=== PATIENT | male | born 1965 ===

== ENCOUNTER 2016-08-01 13:33 | Emergency (ER) | payer OTHER ==
--- NOTE | 2016-08-01 14:12 | ED NURSING NOTES ---
Clinical Report - Nurses [facility] [address] [place] [address] 08/01/2016 13:32 Patient: ROGER ROBISON V TRIAGE Triage time 1348 PM. Chief Complaint: INJURY TO RIGHT FOOT. Alert. No acute distress. CARLOS ALBERTO COMA SCORE: Carlos Alberto Coma Scale: 15- eyes open spontaneously (4); best verbal response- oriented x 4 (5); best motor response- obeys commands (6). --13:56 Juan David Kim R.N. 13:48 08/01/16. BP: 167/86. HR: 75. RR: 16. O2 saturation: 100%. Temp: 98.3 F (oral). Pain level now: 10/11. --13:56 Juan David Kim R.N. Weight: 87 kg stated. Height/Length: 69 inches Per Patient. BMI: 28.3. --13:56 Juan David Kim R.N. Medications MetFORMIN HCl Oral. --13:53 Juan David Kim R.N. Lisinopril Oral. --13:53 Juan David Kim R.N. Allergies No Known Drug Allergy. --13:53 Juan David Kim R.N. History Arrived by private vehicle. Historian: patient. Unaccompanied. This occurred (about 2 weeks ago). ( Patient presents to the ED with symptoms of a wound to his between his left 4th and 5th toe. 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 States that he tries to change his socks every 6 to 14 hours. Patient states that he has a history of diabetes mellitus type II, and is out of his medications. Patient states that he was hospitalized two years ago for MRSA.). He has had trouble walking. Treatment PHARMACY CASHIER: Performed wound care and applied bandage. Took ibuprofen. PAST MEDICAL HX: Diabetes mellitus. Hypertension. Tetanus status: up-to-date. SOCIAL HX: Smoker- current status unknown (chewing tobacco). Alcohol use. Patient is a recovering alcoholic. (5 years this October sobreity). History of drug use: cocaine, methamphetamines. Is a recovering addict. (no). FALL RISK ASSESSMENT: Fall risk assessment completed. No fall risk identified. NUTRITIONAL RISK ASSESSMENT: The nutritional risk assessment revealed no deficiencies. FUNCTIONAL ASSESSMENT: Functional assessment: no impairments noted. LEARNING NEEDS ASSESSMENT: The learning needs assessment revealed no barriers. SKIN INTEGRITY ASSESSMENT: Skin integrity risk assessment completed. No skin integrity risk identified. --13:56 Juan David Kim R.N. PROBLEMS: Hypertension. Diabetes Mellitus. --13:54 Juan David Kim R.N. MRSA Infection. --13:54 Juan David Kim R.N. ADDITIONAL SURGERIES: no known surgeries. Interventions ID band on patient. --13:56 Juan David Kim R.N. PHYSICAL ASSESSMENT Ambulatory to room. GENERAL / NEURO / PSYCH: Oriented X 4. Alert. Appears in no acute distress. EXTREMITIES: Capillary refill is less than 2 seconds in the extremities. Extremity pulses are within normal limits. Extremities exhibit normal ROM. Pain with weight bearing. Neuro-vascular status intact to the extremity. Right foot: of the fourth and fifth toe. Limited weight bearing secondary to pain. SKIN: Skin intact. Skin is warm and dry. --13:57 Juan David Kim R.N. NURSING PROGRESS NOTES Call light placed in reach. Side rails up x 1. Bed placed in lowest position. Brakes of bed on. --13:57 Juan David Kim R.N. Point of care testing: performed by nurse. Glucose: 167. Result shown to the DISTRIBUTION TRANSFORMER ASSEMBLER. --14:14 Juan David Kim R.N. DISPOSITION / DISCHARGE Condition at departure: improved. The goals identified in the patient's plan of care were met. No learning barriers present. Discharge instructions provided and reviewed with the patient. Reviewed wound care, skin care and foot care instructions. Patient verbalized understanding. Written instructions provided in Telugu. The patient was discharged home and unaccompanied at time of discharge. He left the Emergency Department ambulatory and via private vehicle. Patient driving. FALL RISK ASSESSMENT: Fall risk assessment completed. No fall risk identified. --14:22 Juan David Kim R.N. Departure time: 1422 PM. --14:22 Juan David Kim R.N. Locked/Released at 08/01/2016 14:22 by Juan David Kim R.N.
--- NOTE | 2016-08-01 14:12 | ED NURSING NOTES ---
Clinical Report - Nurses [facility] [address] [place] [address] 08/01/2016 13:32 Patient: ROGER ROBISON V TRIAGE Triage time 1348 PM. Chief Complaint: INJURY TO RIGHT FOOT. Alert. No acute distress. CARLOS ALBERTO COMA SCORE: Carlos Alberto Coma Scale: 15- eyes open spontaneously (4); best verbal response- oriented x 4 (5); best motor response- obeys commands (6). --13:56 Juan David Kim R.N. 13:48 08/01/16. BP: 167/86. HR: 75. RR: 16. O2 saturation: 100%. Temp: 98.3 F (oral). Pain level now: 10/11. --13:56 Juan David Kim R.N. Weight: 87 kg stated. Height/Length: 69 inches Per Patient. BMI: 28.3. --13:56 Juan David Kim R.N. Medications MetFORMIN HCl Oral. --13:53 Juan David Kim R.N. Lisinopril Oral. --13:53 Juan David Kim R.N. Allergies No Known Drug Allergy. --13:53 Juan David Kim R.N. History Arrived by private vehicle. Historian: patient. Unaccompanied. This occurred (about 2 weeks ago). ( Patient presents to the ED with symptoms of a wound to his between his left 4th and 5th toe. 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 States that he tries to change his socks every 6 to 14 hours. Patient states that he has a history of diabetes mellitus type II, and is out of his medications. Patient states that he was hospitalized two years ago for MRSA.). He has had trouble walking. Treatment CARDIOGRAPHER: Performed wound care and applied bandage. Took ibuprofen. PAST MEDICAL HX: Diabetes mellitus. Hypertension. Tetanus status: up-to-date. SOCIAL HX: Smoker- current status unknown (chewing tobacco). Alcohol use. Patient is a recovering alcoholic. (5 years this October sobreity). History of drug use: cocaine, methamphetamines. Is a recovering addict. (no). FALL RISK ASSESSMENT: Fall risk assessment completed. No fall risk identified. NUTRITIONAL RISK ASSESSMENT: The nutritional risk assessment revealed no deficiencies. FUNCTIONAL ASSESSMENT: Functional assessment: no impairments noted. LEARNING NEEDS ASSESSMENT: The learning needs assessment revealed no barriers. SKIN INTEGRITY ASSESSMENT: Skin integrity risk assessment completed. No skin integrity risk identified. --13:56 Juan David Kim R.N. PROBLEMS: Hypertension. Diabetes Mellitus. --13:54 Juan David Kim R.N. MRSA Infection. --13:54 Juan David Kim R.N. ADDITIONAL SURGERIES: no known surgeries. Interventions ID band on patient. --13:56 Juan David Kim R.N. PHYSICAL ASSESSMENT Ambulatory to room. GENERAL / NEURO / PSYCH: Oriented X 4. Alert. Appears in no acute distress. EXTREMITIES: Capillary refill is less than 2 seconds in the extremities. Extremity pulses are within normal limits. Extremities exhibit normal ROM. Pain with weight bearing. Neuro-vascular status intact to the extremity. Right foot: of the fourth and fifth toe. Limited weight bearing secondary to pain. SKIN: Skin intact. Skin is warm and dry. --13:57 Juan David Kim R.N. NURSING PROGRESS NOTES Call light placed in reach. Side rails up x 1. Bed placed in lowest position. Brakes of bed on. --13:57 Juan David Kim R.N. Point of care testing: performed by nurse. Glucose: 167. Result shown to the MOTORCYLES FINAL INSPECTOR. --14:14 Juan David Kim R.N. DISPOSITION / DISCHARGE Condition at departure: improved. The goals identified in the patient's plan of care were met. No learning barriers present. Discharge instructions provided and reviewed with the patient. Reviewed wound care, skin care and foot care instructions. Patient verbalized understanding. Written instructions provided in Indonesian. The patient was discharged home and unaccompanied at time of discharge. He left the Emergency Department ambulatory and via private vehicle. Patient driving. FALL RISK ASSESSMENT: Fall risk assessment completed. No fall risk identified. --14:22 Juan David Kim R.N. Departure time: 1422 PM. --14:22 Juan David Kim R.N. Locked/Released at 08/01/2016 14:22 by Juan David Kim R.N.
--- NOTE | 2016-08-01 14:12 | ED CLINICAL REPORT ---
Clinical Report - Physicians/Mid Levels [facility] [address] [place] [address] 08/01/2016 13:32 Patient: ROGER ROBISON V Time Seen: 1357; initial patient contact, initial documentation, patient care assumed. Arrived- By private vehicle. Historian- patient. HISTORY OF PRESENT ILLNESS Chief Complaint: LOWER EXTREMITY PAIN. This started about 2 weeks ago and is still present. Not relieved by anything- worsened by standing and walking. Severity is described as being moderate. The quality is noted to be sharp and "pain". It is described as radiating (up R foot). The patient has not had redness. No swelling, bladder dysfunction, bowel dysfunction, sensory loss or motor loss. No difficulty walking. ( has appt tues with his pcp has pain between 4 and 5 toes, not sure if there was a wound there or not, under harsh work conditions on his feet for 3 days straight, was doing wound care to that area, and trying to keep it moist). Patient notes the possibility of an injury. Similar symptoms previously: Frequently, worse. Recent medical care: Not recently seen/assessed. REVIEW OF SYSTEMS No chest pain, difficulty breathing, fever, vomiting or diarrhea. All systems otherwise negative, except as recorded above. PAST HISTORY See nurses notes. ( PROBLEMS: Hypertension. Diabetes Mellitus. --13:54 Juan David Kim, R.N. MRSA Infection. --13:54 Juan David Kim, R.N. ADDITIONAL SURGERIES: no known surgeries.). SOCIAL HISTORY Heavy tobacco smoker (and chews). Heavy alcohol use. Patient is a longstanding alcoholic. History of heavy drug use: cocaine, methamphetamines. Recently used drugs. No recent travel. Is a local resident. FAMILY HISTORY Negative. ADDITIONAL NOTES The nursing notes have been reviewed with agreement regarding the chief complaint, HPI, ROS, PMH and patient medications and allergies. PHYSICAL EXAM Vital Signs: 08/01/2016 13:48 BP: 167/86. HR: 75. RR: 16. O2 saturation: 100%. Temp: 98.3 F. Pain level now: 4/10. Have been reviewed as normal and appear to be correct. Appearance: Alert. Oriented X3. No acute distress. (pt appears under the influence). Eyes: Pupils equal, round and reactive to light. Eyes normal inspection. Neck: Normal inspection. Neck supple. Respiratory: No respiratory distress. Skin: Skin intact. Skin warm and dry. Normal skin color. Normal skin turgor. Extremities: Lower extremities exhibit normal ROM. No lower extremity edema. (healing wound to R foot, between toes 4&5, no erythema, no swelling, nontender, no dc). Extremities otherwise negative. Gait: Normal gait. Neuro: Oriented X 3. No motor deficit. No sensory deficit. LABS, X-RAYS, AND EKG Bedside Tests: Glucose normal - 160's per rn (performed at bedside). PROGRESS AND PROCEDURES Patient counseled in person regarding the patient's stable condition and diagnosis. 14:12. Differential Diagnosis: Other possible considerations: dm ulcer, gangrene, mrsa, abscess, cellulitis, athletes foot, dermatitis, neuropathy, gout. Above considerations are based on history and physical exam. Differential diagnosis was discussed with patient. Disposition: Discharged home in good and unchanged condition (14:12). Condition: good and stable. CLINICAL IMPRESSION Chronic right foot pain. INSTRUCTIONS Warnings: GENERAL WARNINGS: Return or contact your physician immediately if your condition worsens or changes unexpectedly, if not improving as expected, or if other problems arise. Specifically return if problem worsens. Follow-up: Follow up with your doctor Tuesday as scheduled even if well. Summary of care provided to patient. Understanding of the discharge instructions verbalized by patient. (Electronically signed by Jacquie Garcia A.R.N.P. 08/01/2016 14:40)
--- NOTE | 2016-08-01 14:40 | ED DISCHARGE INSTRUCTIONS ---
Patient: ROGER ROBISON V General Instructions Merged With [facility] VisitID: [id number] [place] [address] 50y, M Registration Date/Time: 08/01/2016 Chronic right foot pain. INSTRUCTIONS Warnings: GENERAL WARNINGS: Return or contact your physician immediately if your condition worsens or changes unexpectedly, if not improving as expected, or if other problems arise. Specifically return if problem worsens. Follow-up: Follow up with your doctor Tuesday as scheduled even if well. Summary of care provided to patient. Understanding of the discharge instructions verbalized by patient. ADDITIONAL INFORMATION Myofascial Pain Syndrome: Fibrositis Your pain is caused by a state of chronic muscle tension. This condition is called by various names: myofascial pain, fibrositis and trigger point pain. This can also be due to mechanical stress (such as working at a computer terminal for long periods; or work that requires repetitive motions of the arms or hands) or emotional stress (such as problems on the job or in your personal life). Sometimes there is no obvious cause. The pain can occur in the area of the muscle spasm or at a site distant to it. For example, spasm of a neck muscle can cause headache. Spasm of the muscle near the shoulder blade can cause pain shooting down the arm. Home Care: Try to identify the factors that may be causing your problem and change them: If you feel thatemotional stressis a cause of your pain, learn methods to deal more effectively with the stress in your life. These may include regular exercise, muscle relaxation techniques, meditation or simply taking time out for yourself. Consult your doctor or go to a local bookstore and review the many books and tapes available on the subject of stress reduction. If you feel that physical stress is a cause for your pain, try to modify any poor work habits. You may use acetaminophen (Tylenol) or ibuprofen (Motrin, Advil) to control pain, unless another medicine was prescribed. [NOTE: If you have chronic liver or kidney disease or ever had a stomach ulcer or GI bleeding, talk with your doctor before using these medicines.] The use of heat to the muscle (hot compress or heating pad) will be helpful to reduce muscle spasm. Some persons get relief with ice packs. Apply an ice pack (crushed or cubed ice in a plastic bag, wrapped in a towel) for 20 minutes at a time as needed. Use the method that feels best to you. Massaging the trigger point and stretching out the muscleare an important parts of prevention and treatment. Trigger point massage can be done by first applying heat to the area to warm and prepare the muscle. Have someone apply steady thumb pressure directly on the knot in the muscle (the most tender point) for 30 seconds. Release the pressure, then massage the surrounding muscle. Repeat the process, applying more pressure to the trigger point each time. Do this up to the limit of pain. With each treatment, the trigger point should become less tender and the pain should decrease. You can apply local pressure to trigger points in the back by lying on the floor with a tennis ball under the trigger point. Follow Up with your doctor as advised or if not improving within the next week. It may be necessary for you to receive physical therapy if you do not respond to home treatment alone. Get Prompt Medical Attention if any of the following occur: If your trigger point is in the chest muscles, observe for pain that becomes more severe, lasts longer, or spreads into your shoulder/arm, neck or back; you develop trouble breathing, sweating, nausea or vomiting in association with chest pain If you develop weakness or numbness in an extremity If your pain worsens, regardless of its location You have been given the following additional information: Myofascial Pain Syndrome (Electronically signed by Jacquie Garcia A.R.N.P. 08/01/2016 14:40)
--- NOTE | 2016-08-01 14:40 | ED MED RECONCILIATION SUMMARY ---
Patient: ROGER ROBISON V Medication Reconciliation Report [facility] VisitID: [id number] [address] [place] [address] 50y, M Registration Date/Time: 08/01/2016 Weight: 87.0 kg Height/Length: 69 in. BMI: 28.3 ALLERGIES: No Known Drug Allergy The patient's Home Medications are listed below: THE FOLLOWING MEDICATIONS NEED TO BE RECONCILED: Lisinopril Oral MetFORMIN HCl Oral The source(s) of the original Home Medication information: Not obtained. The following Medications were given to the patient in the Emergency Department: None. The following Medications were prescribed to the patient: None.
--- NOTE | 2016-08-01 14:40 | ED MAR SUMMARY ---
..... Medication Administration Record [facility] [address] [place], [place] [id number] Patient: ROGER ROBISON V Visit ID: [id number] 50y, M Weight: 87.0 kg Height/Length: 69 in BMI: 28.3 ALLERGIES: No Known Drug Allergy
--- NOTE | 2016-08-01 14:40 | ED MED RECONCILIATION SUMMARY ---
Patient: ROGER ROBISON V Medication Reconciliation Report [facility] VisitID: [id number] [address] [place] [address] 50y, M Registration Date/Time: 08/01/2016 Weight: 87.0 kg Height/Length: 69 in. BMI: 28.3 ALLERGIES: No Known Drug Allergy The patient's Home Medications are listed below: THE FOLLOWING MEDICATIONS NEED TO BE RECONCILED: Lisinopril Oral MetFORMIN HCl Oral The source(s) of the original Home Medication information: Not obtained. The following Medications were given to the patient in the Emergency Department: None. The following Medications were prescribed to the patient: None.
--- NOTE | 2016-08-01 14:40 | ED MAR SUMMARY ---
..... Medication Administration Record [facility] [address] [place], [place] [id number] Patient: ROGER ROBISON V Visit ID: [id number] 50y, M Weight: 87.0 kg Height/Length: 69 in BMI: 28.3 ALLERGIES: No Known Drug Allergy
== END 2016-08-01 14:20 | disposition home or self-care (01) ==
LOC: ED SRH 13:33
DX: G89.29 Other chronic pain (principal); M79.671 Pain in right foot; E11.9 Type 2 diabetes mellitus without complications; I10 Essential (primary) hypertension
CPT/HCPCS: 90098

== ENCOUNTER 2016-10-03 16:23 | Emergency (ER) | payer OTHER ==
--- NOTE | 2016-10-03 17:52 | ED NURSING NOTES ---
Clinical Report - Nurses [facility] [address] [place] [address] 10/03/2016 16:25 Patient: ROGER ROBISON V TRIAGE Triage time 16:34. Acuity: LEVEL 3. Chief Complaint: URINARY RETENTION. --16:40 Kayli Leggett R.N. 16:34 10/03/16. BP: 146/89. HR: 100. RR: 18. O2 saturation: 99%. Temp: 97.9 F. Pain level now: 07/13. Additional comments: When he tries to urinate he rates pain 01/10. --16:40 Kayli Leggett R.N. Weight: 68 kg stated. Height/Length: 67 inches Per Patient. BMI: 23.5. --16:39 Kayli Leggett R.N. Medications MetFORMIN HCl Oral 500 mg, 2x a day. --16:36 Kayli Leggett R.N. Lisinopril Oral. --16:36 Kayli Leggett R.N. Allergies No Known Drug Allergy. --16:36 Kayli Leggett R.N. History Arrived by private vehicle. Historian: patient. Primary physician (Kelly Vazquez in [employer])). Onset. (1 weeks ago). ( Was able to urinate twice last night (small amounts). Saw small amount of blood.). He has been unable to void. Treatment HUMAN RESOURCE INTERNSHIP: None. PAST MEDICAL HX: Diabetes mellitus. SURGERY HX: No history of previous surgery. SOCIAL HX: Smoker- current status unknown (chewing tobacco). Alcohol use. Patient is a recovering alcoholic. SELF HARM ASSESSMENT: A self harm assessment was performed. The patient answered "no" to the question "Do you have thoughts of harming or killing yourself?". ABUSE ASSESSMENT: Abuse assessment: ("yes") The patient was asked "Do you feel safe in your home?". --16:40 Kayli Leggett R.N. Interventions ID band on patient. To room. --16:40 Kayli Leggett R.N. PHYSICAL ASSESSMENT Ambulatory to room. GENERAL / NEURO / PSYCH: Alert. Oriented X 4. Appears in pain. RESPIRATORY: Respirations not labored. CVS: Normal heart rate and rhythm. GI / : Pain with urination. SKIN: Skin is warm and dry. --16:40 Kayli Leggett R.N. NURSING PROGRESS NOTES Reassurance given. Patient identifiers checked. Call light placed in reach. Side rails up. Bed placed in lowest position. Patient ready for evaluation- ED physician notified. --16:40 Kayli Leggett R.N. 16:50. ( bladder scan done = 240mL). --17:14 Kayli Leggett R.N. 16:55. Patient ID band checked: patient confirmed. Clean catch urine collected with return of yellow-colored cloudy urine, sediment noted; sample sent to lab. Specimen labeled in the presence of the patient. --17:15 Kayli Leggett R.N. ( Gave pt urinal for second urine sample). --17:17 Kayli Leggett R.N. 17:46 10/03/2016 Ciprofloxacin (Ciprofloxacin) PO 500 mg given. Allergies verified and confirmed 5 rights. --17:46 Asmita Hsu R.N. ( 2nd Urine Specimen sent to lab.). --17:49 Asmita Hsu R.N. DISPOSITION / DISCHARGE No learning barriers present. Discharge instructions provided and reviewed with the patient. Reviewed medication(s). Prescription(s) given to the patient. Treatments reviewed. Reviewed referrals. Patient verbalized understanding. Written instructions provided in South Sudanese. The patient was discharged by the physician electrician's assistant. He was discharged home. He left the Emergency Department ambulatory and via private vehicle. Patient driving. --18:02 Kayli Leggett R.N. 18:01 10/03/16. BP: 148/89. HR: 86. RR: 16. O2 saturation: 98%. Temp: 97.8 F. Pain level now: 07/13. --18:02 Kayli Leggett R.N. Departure time: 18:02. --18:02 Kayli Leggett R.N. Locked/Released at 10/03/2016 19:25 by Kayli Leggett R.N.
--- NOTE | 2016-10-03 17:52 | ED ORDER SUMMARY ---
..... Patient: ROGER ROBISON V OrderSheet [facility] VisitID: [id number] [place] [address] 51y, M Registration Date/Time: 10/03/2016 ORDER SHEET Weight: 68.0 kg (stated) Allergies: No Known Drug Allergy GENERAL ORDERS: GC/Chlamydia, Urine (Urine, Clean Catch) (u) Urgent (16:50 10/03/2016 EKoroleanita P.A.-C) ([facility] 16:54 Hollie) (17:46 SBalde R.N.) UA-Culture if indicated Urgent (16:50 10/03/2016 EKbony P.A.-C) ([facility] 16:54 Hollie) (17:46 SBalde R.N.) MEDICATION ORDERS: Ciprofloxacin PO 500 mg (NOW) (17:42 10/03/2016 EKbony P.A.-C) (17:46 SBalde R.N.) IV FLUIDS: ORDER SHEET NOTES: [Electronically signed by Blanka Galiica P.A.-C (18:47 10/03/2016)] [Electronically signed by Kayli Leggett R.N. (19:25 10/03/2016)] [Electronically locked/signed by Kayli Leggett R.N. (19:25 10/03/2016)]
--- NOTE | 2016-10-03 17:52 | ED ORDER SUMMARY ---
..... Patient: ROGER ROBISON V OrderSheet [facility] VisitID: [id number] [place] [address] 51y, M Registration Date/Time: 10/03/2016 ORDER SHEET Weight: 68.0 kg (stated) Allergies: No Known Drug Allergy GENERAL ORDERS: GC/Chlamydia, Urine (Urine, Clean Catch) (u) Urgent (16:50 10/03/2016 EKoroleanita P.A.-C) ([facility] 16:54 Hollie) (17:46 SBalde R.N.) UA-Culture if indicated Urgent (16:50 10/03/2016 EKbony P.A.-C) ([facility] 16:54 Hollie) (17:46 SBalde R.N.) MEDICATION ORDERS: Ciprofloxacin PO 500 mg (NOW) (17:42 10/03/2016 EKbony P.A.-C) (17:46 SBalde R.N.) IV FLUIDS: ORDER SHEET NOTES: [Electronically signed by Blanka Galicia P.A.-C (18:47 10/03/2016)] [Electronically signed by Kayli Leggett R.N. (19:25 10/03/2016)] [Electronically locked/signed by Kayli Leggett R.N. (19:25 10/03/2016)]
--- NOTE | 2016-10-03 17:52 | ED CLINICAL REPORT ---
Clinical Report - Physicians/Mid Levels [facility] [address] [place] [address] 10/03/2016 16:25 Patient: ROGER ROBISON V Time Seen: 16:49 Oct 03 2016. Arrived- By private vehicle. Historian- patient. HISTORY OF PRESENT ILLNESS Chief Complaint: URINARY RETENTION. This started 2 days and is still present. The problem is described as mild. No discomfort with urination, urinary frequency or genital lesion. He has been unable to void (difficulty starting stream). Sexual history is noncontributory. He has not had an exposure to a sexually transmitted disease. (Patient reports Difficult to void over the last 2 days, this has been ongoing for the last 7 days worsening. Reports difficulty in starting stream, then able to maintain it, no dysuria at time of stream. . Denies any fevers or any rectal pain. No discharge. NO flank pain. NO new med changes/ surgery or abx. NO h/o similar.). REVIEW OF SYSTEMS No fever, flank pain, abdominal pain, vomiting or diarrhea. No difficulty breathing. All systems otherwise negative, except as recorded above. SOCIAL HISTORY Current every day smoker. Alcohol use. Patient is a recovering alcoholic. ADDITIONAL NOTES The nursing notes have been reviewed. PHYSICAL EXAM Vital Signs: 10/03/2016 16:34 BP: 146/89. HR: 100. RR: 18. O2 saturation: 99%. Temp: 97.9 F. Pain level now: 1/10. Appearance: Alert. No acute distress. ENT: Normal external inspection. Pharynx normal. Neck: Neck supple. CVS: Heart sounds normal. Respiratory: No respiratory distress. No respiratory distress. Abdomen: Soft. No abdominal tenderness or distention. Neuro: Oriented X 3. LABS, X-RAYS, AND EKG Laboratory Tests: UA-Culture if indicated: (ASHLEY: 10/03/2016 17:00) ( MsgRcvd 10/03/2016 17:25) Final results Test Result Flag Units (Reference) URINE COLOR YELLOW URINE APPEARANCE TURBID URINE GLUCOSE NEGATIVE (NEGATIVE) URINE BILIRUBIN NEGATIVE (NEGATIVE) URINE KETONE NEGATIVE (NEGATIVE) URINE SPECIFIC GRAVITY 1.025 (1.010-1.030) URINE PH 7.0 (5.0-8.0) URINE PROTEIN 3+ (NEGATIVE) URINE UROBILINOGEN 1.0 EU/dL (0.2-1.0) URINE NITRITE NEGATIVE (NEGATIVE) URINE BLOOD 3+ (NEGATIVE) URINE LEUK ESTERASE NEGATIVE (NEGATIVE) URINE RBC >100 rbc/hpf (0-1) URINE WBC 5-10 wbc/hpf (0-1) URINE EPITHELIAL CELLS NONE SEEN EPI/hpf (0-5) URINE BACTERIA MODERATE (2+ TO 3+) (NONE SEEN) URINE COMMENT CULTURE INDICATED URINE CULTURES ARE SET-UP BASED ON THE FOLLOWING CRITERIA:POSITIVE NITRITEPOSITIVE LEUKOCYTE ESTERASEGREATER THAN 10 WHITE BLOOD CELLSMODERATE (2+) OR GREATER BACTERIA . PROGRESS AND PROCEDURES Course of Care: Signs of cystitis, less than 250 cc in bladder, able to void. He has no pain, no h/o nephrolithiais. Given ability to void well no further eval at this time, will start on abx, and if no improvement pt will need to see urology. Understands such plan. Patient is stable. Symptoms better. Patient/family counseled. Disposition: Discharged. CLINICAL IMPRESSION Acute cystitis. INSTRUCTIONS (if this persists follow up with UROLOGY: [phone]). Warnings: Further evaluation is necessary. Prescription Medications: Cipro 500 mg: take 1 tab orally every 12 hours for 7 days. Dispense fourteen (14). No refills. Substitution is permissible. Follow-up: Follow up with your doctor in three days. (Electronically signed by Blanka Galicia P.A.-C 10/03/2016 18:47)
--- NOTE | 2016-10-03 17:52 | ED NURSING NOTES ---
Clinical Report - Nurses [facility] [address] [place] [address] 10/03/2016 16:25 Patient: ROGER ROBISON V TRIAGE Triage time 16:34. Acuity: LEVEL 3. Chief Complaint: URINARY RETENTION. --16:40 Kayli Leggett R.N. 16:34 10/03/16. BP: 146/89. HR: 100. RR: 18. O2 saturation: 99%. Temp: 97.9 F. Pain level now: 07/13. Additional comments: When he tries to urinate he rates pain 01/10. --16:40 Kayli Leggett R.N. Weight: 68 kg stated. Height/Length: 67 inches Per Patient. BMI: 23.5. --16:39 Kayli Leggett R.N. Medications MetFORMIN HCl Oral 500 mg, 2x a day. --16:36 Kayli Leggett R.N. Lisinopril Oral. --16:36 Kayli Leggett R.N. Allergies No Known Drug Allergy. --16:36 Kayli Leggett R.N. History Arrived by private vehicle. Historian: patient. Primary physician (Kelly Vazquez in [facility])). Onset. (1 weeks ago). ( Was able to urinate twice last night (small amounts). Saw small amount of blood.). He has been unable to void. Treatment PIPE STEM SAWYER: None. PAST MEDICAL HX: Diabetes mellitus. SURGERY HX: No history of previous surgery. SOCIAL HX: Smoker- current status unknown (chewing tobacco). Alcohol use. Patient is a recovering alcoholic. SELF HARM ASSESSMENT: A self harm assessment was performed. The patient answered "no" to the question "Do you have thoughts of harming or killing yourself?". ABUSE ASSESSMENT: Abuse assessment: ("yes") The patient was asked "Do you feel safe in your home?". --16:40 Kayli Leggett R.N. Interventions ID band on patient. To room. --16:40 Kayli Leggett R.N. PHYSICAL ASSESSMENT Ambulatory to room. GENERAL / NEURO / PSYCH: Alert. Oriented X 4. Appears in pain. RESPIRATORY: Respirations not labored. CVS: Normal heart rate and rhythm. GI / : Pain with urination. SKIN: Skin is warm and dry. --16:40 Kayli Leggett R.N. NURSING PROGRESS NOTES Reassurance given. Patient identifiers checked. Call light placed in reach. Side rails up. Bed placed in lowest position. Patient ready for evaluation- ED physician notified. --16:40 Kayli Leggett R.N. 16:50. ( bladder scan done = 240mL). --17:14 Kayli Leggett R.N. 16:55. Patient ID band checked: patient confirmed. Clean catch urine collected with return of yellow-colored cloudy urine, sediment noted; sample sent to lab. Specimen labeled in the presence of the patient. --17:15 Kayli Leggett R.N. ( Gave pt urinal for second urine sample). --17:17 Kayli Leggett R.N. 17:46 10/03/2016 Ciprofloxacin (Ciprofloxacin) PO 500 mg given. Allergies verified and confirmed 5 rights. --17:46 Asmita Hsu R.N. ( 2nd Urine Specimen sent to lab.). --17:49 Asmita Hsu R.N. DISPOSITION / DISCHARGE No learning barriers present. Discharge instructions provided and reviewed with the patient. Reviewed medication(s). Prescription(s) given to the patient. Treatments reviewed. Reviewed referrals. Patient verbalized understanding. Written instructions provided in R[place]. The patient was discharged by the physician hair assistant. He was discharged home. He left the Emergency Department ambulatory and via private vehicle. Patient driving. --18:02 Kayli Leggett R.N. 18:01 10/03/16. BP: 148/89. HR: 86. RR: 16. O2 saturation: 98%. Temp: 97.8 F. Pain level now: 07/13. --18:02 Kayli Leggett R.N. Departure time: 18:02. --18:02 Kayli Leggett R.N. Locked/Released at 10/03/2016 19:25 by Kayli Leggett R.N.
--- NOTE | 2016-10-03 17:52 | ED CLINICAL REPORT ---
Clinical Report - Physicians/Mid Levels [facility] [address] [place] [address] 10/03/2016 16:25 Patient: ROGER ROBISON V Time Seen: 16:49 Oct 03 2016. Arrived- By private vehicle. Historian- patient. HISTORY OF PRESENT ILLNESS Chief Complaint: URINARY RETENTION. This started 2 days and is still present. The problem is described as mild. No discomfort with urination, urinary frequency or genital lesion. He has been unable to void (difficulty starting stream). Sexual history is noncontributory. He has not had an exposure to a sexually transmitted disease. (Patient reports Difficult to void over the last 2 days, this has been ongoing for the last 7 days worsening. Reports difficulty in starting stream, then able to maintain it, no dysuria at time of stream. . Denies any fevers or any rectal pain. No discharge. NO flank pain. NO new med changes/ surgery or abx. NO h/o similar.). REVIEW OF SYSTEMS No fever, flank pain, abdominal pain, vomiting or diarrhea. No difficulty breathing. All systems otherwise negative, except as recorded above. SOCIAL HISTORY Current every day smoker. Alcohol use. Patient is a recovering alcoholic. ADDITIONAL NOTES The nursing notes have been reviewed. PHYSICAL EXAM Vital Signs: 10/03/2016 16:34 BP: 146/89. HR: 100. RR: 18. O2 saturation: 99%. Temp: 97.9 F. Pain level now: 1/10. Appearance: Alert. No acute distress. ENT: Normal external inspection. Pharynx normal. Neck: Neck supple. CVS: Heart sounds normal. Respiratory: No respiratory distress. No respiratory distress. Abdomen: Soft. No abdominal tenderness or distention. Neuro: Oriented X 3. LABS, X-RAYS, AND EKG Laboratory Tests: UA-Culture if indicated: (ASHLEY: 10/03/2016 17:00) ( MsgRcvd 10/03/2016 17:25) Final results Test Result Flag Units (Reference) URINE COLOR YELLOW URINE APPEARANCE TURBID URINE GLUCOSE NEGATIVE (NEGATIVE) URINE BILIRUBIN NEGATIVE (NEGATIVE) URINE KETONE NEGATIVE (NEGATIVE) URINE SPECIFIC GRAVITY 1.025 (1.010-1.030) URINE PH 7.0 (5.0-8.0) URINE PROTEIN 3+ (NEGATIVE) URINE UROBILINOGEN 1.0 EU/dL (0.2-1.0) URINE NITRITE NEGATIVE (NEGATIVE) URINE BLOOD 3+ (NEGATIVE) URINE LEUK ESTERASE NEGATIVE (NEGATIVE) URINE RBC >100 rbc/hpf (0-1) URINE WBC 5-10 wbc/hpf (0-1) URINE EPITHELIAL CELLS NONE SEEN EPI/hpf (0-5) URINE BACTERIA MODERATE (2+ TO 3+) (NONE SEEN) URINE COMMENT CULTURE INDICATED URINE CULTURES ARE SET-UP BASED ON THE FOLLOWING CRITERIA:POSITIVE NITRITEPOSITIVE LEUKOCYTE ESTERASEGREATER THAN 10 WHITE BLOOD CELLSMODERATE (2+) OR GREATER BACTERIA . PROGRESS AND PROCEDURES Course of Care: Signs of cystitis, less than 250 cc in bladder, able to void. He has no pain, no h/o nephrolithiais. Given ability to void well no further eval at this time, will start on abx, and if no improvement pt will need to see urology. Understands such plan. Patient is stable. Symptoms better. Patient/family counseled. Disposition: Discharged. CLINICAL IMPRESSION Acute cystitis. INSTRUCTIONS (if this persists follow up with UROLOGY: [phone]). Warnings: Further evaluation is necessary. Prescription Medications: Cipro 500 mg: take 1 tab orally every 12 hours for 7 days. Dispense fourteen (14). No refills. Substitution is permissible. Follow-up: Follow up with your doctor in three days. (Electronically signed by Blanka Galicia P.A.-C 10/03/2016 18:47)
--- NOTE | 2016-10-03 19:25 | ED MAR SUMMARY ---
..... Medication Administration Record [address] [place] [address] Patient: ROGER ROBISON V Visit ID: [id number] 51y, M Weight: 68.0 kg Height/Length: 67 in BMI: 23.5 ALLERGIES: No Known Drug Allergy Given 17:46 10/03/2016 Asmita Hsu R.N. Medication Administered: CIPROFLOXACIN [PO] (CIPROFLOXACIN), Dose: 500 mg PO. Medication Ordered: Ciprofloxacin PO 500 mg (NOW).
--- NOTE | 2016-10-03 19:25 | ED MED RECONCILIATION SUMMARY ---
Patient: ROGER ROBISON V Medication Reconciliation Report [facility] VisitID: [id number] [place] [address] 51y, M Registration Date/Time: 10/03/2016 Weight: 68.0 kg Height/Length: 67 in. BMI: 23.5 ALLERGIES: No Known Drug Allergy The patient's Home Medications are listed below: THE FOLLOWING MEDICATIONS NEED TO BE RECONCILED: Lisinopril Oral MetFORMIN HCl Oral 500 mg, 2x a day The source(s) of the original Home Medication information: Not obtained. The following Medications were given to the patient in the Emergency Department: Ciprofloxacin [PO] PO 500 mg, administered: 10/03/2016 5:46:00 PM The following Medications were prescribed to the patient: Cipro 500 mg: take 1 tab orally every 12 hours for 7 days. Dispense fourteen (14). No refills. Substitution is permissible. -- Blanka Galicia, JaleesaC
--- NOTE | 2016-10-03 19:25 | ED MED RECONCILIATION SUMMARY ---
Patient: ROGER ROBISON V Medication Reconciliation Report [facility] VisitID: [id number] [place] [address] 51y, M Registration Date/Time: 10/03/2016 Weight: 68.0 kg Height/Length: 67 in. BMI: 23.5 ALLERGIES: No Known Drug Allergy The patient's Home Medications are listed below: THE FOLLOWING MEDICATIONS NEED TO BE RECONCILED: Lisinopril Oral MetFORMIN HCl Oral 500 mg, 2x a day The source(s) of the original Home Medication information: Not obtained. The following Medications were given to the patient in the Emergency Department: Ciprofloxacin [PO] PO 500 mg, administered: 10/03/2016 5:46:00 PM The following Medications were prescribed to the patient: Cipro 500 mg: take 1 tab orally every 12 hours for 7 days. Dispense fourteen (14). No refills. Substitution is permissible. -- Blanka Galicia, JaleesaC
--- NOTE | 2016-10-03 19:25 | ED MAR SUMMARY ---
..... Medication Administration Record [address] [place] [address] Patient: ROGER ROBISON V Visit ID: [id number] 51y, M Weight: 68.0 kg Height/Length: 67 in BMI: 23.5 ALLERGIES: No Known Drug Allergy Given 17:46 10/03/2016 Asmita Hsu R.N. Medication Administered: CIPROFLOXACIN [PO] (CIPROFLOXACIN), Dose: 500 mg PO. Medication Ordered: Ciprofloxacin PO 500 mg (NOW).
--- NOTE | 2016-10-03 19:25 | ED DISCHARGE INSTRUCTIONS ---
Patient: ROGER ROBISON V General Instructions [facility] VisitID: [id number] [place] [address] 51y, M Registration Date/Time: 10/03/2016 Acute cystitis. INSTRUCTIONS (if this persists follow up with UROLOGY: [phone]). Warnings: Further evaluation is necessary. Prescription Medications: Cipro 500 mg: take 1 tab orally every 12 hours for 7 days. Dispense fourteen (14). No refills. Substitution is permissible. Follow-up: Follow up with your doctor in three days. ADDITIONAL INFORMATION Bladder Infection,Male (Adult) A bladder infection ("cystitis" or "UTI") usually causes a constant urge to urinate, and a burning when passing urine. Urine may be cloudy, smelly or dark. There may be also be pain in the lower abdomen. Cystitis in males is not common. It may be caused by a partial blockage in the urinary system that keeps the bladder from emptying completely. This is most often related to an enlarged prostate gland. Home Care: Drink lots of fluids (at least 6-8 glasses a day). This will flush the bacteria out of your bladder. Avoid sexual intercourse until your symptoms are gone. Avoid caffeine, alcohol, and spicy foods. They could irritate the bladder. A bladder infection is treated with antibiotics. You may also be given Pyridium (generic - phenazopyridine) to reduce burning with urination. This will cause urine to become a bright orange color, which can stain clothing. Follow Up with your doctor or this facility if ALL symptoms have not cleared within five days. It is important to keep your follow up appointment to discuss with your doctor the need for further tests of the urinary tract. Get Prompt Medical Attention if any of the following occur: Fever of 100.4F (38C) or higher, or as directed by your healthcare provider No improvement by the third day of treatment Increasing back or abdominal pain Repeated vomiting; unable to keep medicine down Weakness, dizziness or fainting Blood In The Urine Blood in the urine ("hematuria") has many possible causes. If it occurs after an injury (such as a car accident or fall), it is most often a sign of bruising to the kidney or bladder. Common medical causes of blood in the urine include urinary tract infection, kidney stone, inflammation, tumors, or certain other diseases of the kidney or bladder. Menstruation can cause blood to appear in the urine sample, although it is not coming from the urinary tract. If only a trace amount of blood is present, it will show up on the urine test, even though the urine may be yellow and not pink or red. This may occur with any of the above conditions, as well as heavy exercise or high fever. In this case, your doctor may want to repeat the urine test on another day. This will show if the blood is still present. If so, then other tests can be done to find out the cause. Home Care: If your urine does not appear bloody (pink, brown or red) then you do not need to restrict your activity in any way. If you can see blood in your urine, rest and avoid heavy exertion until your next exam. Do not use aspirin or anti-inflammatory medicine like ibuprofen (Motrin, Advil) or naproxen (Naprosyn, Aleve). These thin the blood and may increase bleeding. Follow Up with your doctor or as advised by our staff. If you were injured and had blood in your urine, you should have a repeat urine test in 1-2 days. Contact your doctor or return to this facility for this test. [NOTE: A radiologist will review any X-rays that were taken. We will notify you of any new findings that may affect your care.] Get Prompt Medical Attention if any of the following occur: Bright red blood or blood clots in the urine (if a new symptom) Weakness, dizziness or fainting New groin, abdominal or back pain Fever of 100.4F (38C) or higher, or as directed by your healthcare provider Repeated vomiting Bleeding from nose, gums or easy bruising You have been given the following additional information: Bladder Infection, Male (Adult) Hematuria (Electronically signed by Blanka Galicia P.A.-C 10/03/2016 18:47)
== END 2016-10-03 18:02 | disposition home or self-care (01) ==
LOC: ED SRH 16:23
DX: N30.00 Acute cystitis without hematuria (principal); E11.9 Type 2 diabetes mellitus without complications; F17.220 Nicotine dependence, chewing tobacco, uncomplicated; Z79.84 Long term (current) use of oral hypoglycemic drugs
CPT/HCPCS: 90004; 90469; 91227; 91228